=== PATIENT | male | born 1960 | race Caucasian/White ===

== ENCOUNTER → 2022-03-22 18:15 | Outpatient (BNVA) | payer BC, SELFPAY | PROVIDERS: Visit Provider Emergency Medicine | DX: R30.0 Dysuria (principal); R10.32 Left lower quadrant pain | CPT/HCPCS: G0103 ==

== ENCOUNTER → 2022-04-07 14:55 | Outpatient (BNVA) | payer BC, SELFPAY | PROVIDERS: PCP Family Medicine Adult Medicine; Visit Provider Family Medicine Adult Medicine | DX: I10 Essential (primary) hypertension (principal); N40.1 Benign prostatic hyperplasia with lower urinary tract symptoms | CPT/HCPCS: 80053; 84443; 85025 ==

== ENCOUNTER → 2024-10-06 11:32 | Outpatient (BNVA) | payer OTHER, SELFPAY | PROVIDERS: PCP Family Medicine Adult Medicine; Visit Provider Family Medicine | DX: F32.A Depression, unspecified (principal) | CPT/HCPCS: 80053; 80061; 85025 ==